=== PATIENT | male | born 1990 | race Caucasian/White ===

== ENCOUNTER 2023-04-08 08:47 | Outpatient (OUT) | payer SELFPAY ==
--- NOTE | 2023-04-08 08:54 | XR_ITS ---
The [address] [address] Patient Name: LISETH CHRISTIANSEN MRN: [id number] date: 1990 Sex: M Assigned Patient Location: RAD Current Patient Location: RAD Accession/Order Number: [id number] Exam Date: 04/08/2023 09:00 Report Date: 04/08/2023 09:26 At the request of: JENNY BLACKMON Procedure: XR elbow RT min 3V PROCEDURE: XR elbow RT min 3V HISTORY: rt elbow pain M25.521 COMPARISON: None. FINDINGS: BONES:Subtle cortical irregularity along lateral margin of the radial neck and questionable trabecular lucency. SOFT TISSUES:No visible soft tissue swelling. EFFUSION:Large joint effusion. OTHER: Negative. XR/XR elbow RT min 3V IMPRESSION: 1. Large joint effusion. 2. Suspect nondisplaced radial neck fracture. Electronically authenticated by: KIA IZAGUIRRE Date: 04/08/2023 09:26
== END 2023-04-08 08:48 | disposition home or self-care (01) ==
PROVIDERS: PCP Family Medicine; Visit Provider Nurse Practitioner Family
DX: M25.521 Pain in right elbow (principal); M25.421 Effusion, right elbow
CPT/HCPCS: 73080

== ENCOUNTER 2024-05-05 15:16 | Outpatient (OUT) | payer SELFPAY ==
--- OUTSIDE RECORDS SUMMARY | 2024-05-05 15:40 | XMS_ITS | CCD ---
Author Organization [facility] Care Team Providers Care Family Law Mediator Name Role Phone DR MILTON GALINDO Attending Unavailable DR MILTON GALINDO Consulting Unavailable DR MILTON GALINDO Primary Care Unavailable DR MILTON GALINDO Admitting Unavailable LEN GRIGGS Attending Unavailable LEN GRIGGS Attending Unavailable LEN GRIGGS Referring Unavailable Problems Active Problems Problem Classification Problem Date Documented Da te Episodic/Chronic Unclassified (2 sources) CONTACT W/AND (SUSP) EXPOS COVID-19; Translations: [CONTACT W/AND (SUSP) EXPOS COVID-19] Onset: 04-22-2021 Viral infection (1 source) COVID-19; Translations: [COVID-19] Onset: 04-22-2021 Past or Other Problems Problem Classification Problem Date Documented Da te Episodic/Chronic Unclassified (1 source) CONTACT W/AND (SUSP) EXPOS COVID-19; Translations: [CONTACT W/AND (SUSP) EXPOS COVID-19] Onset: 04-17-2021 Results Test Name Value Interpretation Reference Range Facil ity Covid-19 PCR (CVDTBH)on SARS-CoV-2 (COVID-19) RNA ALLIE+probe Ql (Unsp spec) Detected Critically abnormal NOT DETECTED [facility] Comment on above: Result Comment: This test is not yet jm roved or cleared by the [place] FDA. When there are no FDA-approved or cleared tests available, and other criteria are met, FDA can make tests available under an emergency access mechanism called an Emergency Use Authorization (EUA). The EUA for this test is supported by the [place] of Health and Human Service's (HHS's) declaration that circumstances exist to justify the emergency use of in vitro diagnostics for the detection and/or diagnosis of the virus that causes COVID-19. This EUA will remain in effect (meaning this test can be used) for the duration of the COVID-19 declaration justifying emergency of IVDs, unless it is terminated or revoked by FDA (after which the test may no longer be used). Performed By: #### [facility] #### [facility] [address], [place] [address] Dr. Darío Moreno Encounters Encounter Date Encounter Type Care Provider Facility Start: 04-22-2023 End: 04-23-2023 ambulatory LEN GRIGGS Not Available Start: 04-08-2023 End: 04-08-2023 ambulatory LEN GRIGGS Not Available Start: 04-17-2021 End: 04-17-[address] MILTON GALINDO Facility:[facility] Payers Date Payer Category Payer Unknown [id number] 1961 Self-pay Summary Purpose Family History No Family History Records FoundNo Family History Records Found Advance Directives No Advanced Directives Records FoundNo Advanced Directives Records Found Additional Source Comments (unrecognized sect ion and content) No Status Records FoundNo Status Records Found INFORMATION SOURCE (unrecogn ized section and content) DATE CREATED AUTHOR 04/22/2021 [facility] DATE CREATED AUTHOR AUTHOR'S ORGANIZ ATION 04/27/2023 [facility] EPIC FOR RECORDS PERTAINING TO PATIENTS WHO ARE OR HAVE BEEN ENROLLED IN A CHEMICAL DEPENDENCY/SUBSTANCEABUSE PROGRAM, SOME INFORMATION MAY BE OMITTED. This clinical summary was aggregated from multiple sources. Caution should be exercised in using it in the provision of clinical care. This summary normalizes information from multiple sources, and as a consequence, information in this document may materially change the coding, format and clinical context of patient data. In addition, data may be omitted in some cases. CLINICAL DECISIONS SHOULD BE BASED ON THE PRIMARY CLINICAL RECORDS. [employer] provides no warranty or guarantee of the accuracy or completeness of information in this document.
[2024-05-06 04:08] LABS: Uric Acid, Urine 18.6 mg/dL (Not Estab.)
[2024-05-11 20:07] LABS: Summary Report (Summary) FINAL (.)
== END 2024-05-05 15:17 | disposition home or self-care (01) ==
PROVIDERS: PCP Family Medicine; Visit Provider Family Medicine
DX: F90.9 Attention-deficit hyperactivity disorder, unspecified type (principal)
CPT/HCPCS: 80326; 80331; 80334; 80337; 80338; 80341; 80344; 80347; 80348; 80353; 80354; 80355; 80357; 80358; 80359; 80360; 80361; 80364; 80365; 80366; 80367; 80368; 80370; 80371; 80372; 80373; 80377; 82570; 83992; 84560